=== PATIENT | female | born 1955 | race Caucasian/White ===

== ENCOUNTER → 2020-12-05 16:34 | Outpatient (CLI) | payer OTHER, SELFPAY ==
--- NOTE | ~2020-12-05 | XR_ITS ---
EXAMINATION: XR knee LT min 4V DATE: 12/05/2020 19:00 INDICATION: Left knee pain. TECHNIQUE: 4 views of left knee were obtained. COMPARISON: None. FINDINGS: Bone alignment is normal. No fracture. There is mild tricompartmental osteoarthritis charac terized by tiny marginal osteophytes. No knee joint effusion. IMPRESSION: 1. Mild left knee osteoarthritis. Reviewed, dictated and finalized at location A.
--- NOTE | ~2020-12-05 | XR_ITS ---
EXAMINATION: XR knee RT min 4V DATE: 12/05/2020 19:00 INDICATION: Right knee pain. TECHNIQUE: 4 views of right knee were obtained. COMPARISON: Right knee radiographs 10/22/2007 FINDINGS: Bone alignment is normal. No fracture. There is moderate osteoarthritis of lateral compartm ent and mild osteoarthritis of medial and patellofemoral compartments. There is a small knee joint ef fusion. IMPRESSION: 1. Moderate right knee osteoarthritis. 2. Small right knee joint effusion. Reviewed, dictated and finalized at location A.
== END ==
PROVIDERS: PCP Physician Assistant; Visit Provider Physician Assistant
DX: M17.0 Bilateral primary osteoarthritis of knee (principal); M25.461 Effusion, right knee
CPT/HCPCS: 73564

== ENCOUNTER 2021-05-25 13:24 | Emergency (ER) | payer OTHER, SELFPAY ==
--- NOTE | 2021-05-25 13:36 | ED.FEMALEGU ---
HPI - Female Genitourinary General Chief complaint: Urogenital-Female Stated complaint: uti Time Seen by Provider: 05/25/21 13:37 Source: patient and RN notes reviewed Mode of arrival: ambulatory Limitations: no limitations History of Present Illness HPI Narrative: 66-year-old female presents to the [facility] with complaints of I think I have a UTI. Patient states that when she woke up this morning she had urgency of urination. Also states she has had burning and frequency. States that it feels like she is not emptying her bladder all the way. Last time she had a UTI was over 10 years ago. Denies any chest pain or abdominal pain. No nausea vomiting or diarrhea. No CVA tenderness. No fevers MD elicited complaint: UTI Related Data Home Medications Medication Instructions Recorded Confirmed ezetimibe 10 mg PO DAILY 05/25/21 05/25/21 metoprolol tartrate 25 mg PO BID 05/25/21 05/25/21 Allergies Allergy/AdvReac Type Severity Reaction Status Date / Time No Known Allergies Allergy Mild Verified 05/25/21 13:46 Review of Systems Review of Systems: All systems reviewed & are unremarkable except as noted in HPI and below Constitutional: Constitutional: Reports no additional constitutional complaints Eyes: Eyes: Reports no additional eye complaints Cardiovascular: Cardiovascular: Reports no additional cardiovascular complaints Respiratory: Respiratory: Reports no additional respiratory complaints Gastrointestinal: Gastrointestinal: Reports no additional gastrointestinal complaints, Denies abdominal pain, Denies diarrhea, Denies nausea and Denies vomiting Genitourinary: Genitourinary: Reports as per HPI, Reports nocturia, Reports dysuria, Denies flank pain and Denies vaginal discharge Musculoskeletal: Musculoskeletal: Reports no additional musculoskeletal complaints Integumentary/Breasts: Skin/Breast: Reports system reviewed and no additional complaints, except as docu Neurologic: Reports system reviewed and no additional complaints, except as documented Psychiatric: Psychiatric: Reports no additional psychiatric complaints Allergic/Immunologic: Allergic/Immunologic: Reports no additional allergic/immunologic complaints PMF Past Medical History Medical History (Updated 05/25/21 @ 14:31 by Lis Moreno) Arthritis High cholesterol Mitral valve prolapse no symptoms MARYBETH (obstructive sleep apnea) does not routinely use CPAP Social History Social History (Updated 05/25/21 @ 13:37 by Lis Moreno) Living arrangements: with family Gender identity (if verbalized by the patient): Female Comments At the time of my signature, I reviewed and agree with the nursing past medical, surgical, social, and family history. There is no relevant family history pertinent to the patient complaint. Exam Const: General: healthy appearing, no acute distress and alert Nutritional Appearance: well nourished Orientation/consciousness: patient oriented x3 Limitations: no limitations HENMT: Head: normal to inspection Eyes: Conjunctivae: conjunctivae normal Pupils: Equal, round and reactive pupils present Neck: Neck: normal visual inspection, no lymphadenopathy and no meningeal signs Chest: Chest palpation & inspection: normal inspection of the chest Resp: Effort & Inspection: normal respiratory effort and no use of accessory muscles Auscultation: clear to auscultation bilaterally, no crackles, no rales, no rhonchi and no wheezes Cardio: Rate: bradycardic (On metoprolol) Rhythm: regular rhythm GI: GI Palp: Yes Soft to palpation, No Tenderness to palpation present (GI) and No Guarding due to palpation present (GI) : General: Yes no CVA tenderness Back/Spine/Pelvis: Back: no CVA tenderness Skin: General skin exam: normal color Rashes: no rashes Wounds: no wounds Neuro: General: patient oriented x3, moves all extremities, no meningeal signs and no focal motor deficits Speech: normal speech Gait exa
[2021-05-25 13:38] VITALS: BP 137/77; PULSE 49; RESP 18; TEMP 36.6; O2SAT 100
== END 2021-05-25 13:51 | disposition home or self-care (01) ==
PROVIDERS: Emergency Provider Nurse Practitioner; PCP Physician Assistant
DX: N30.01 Acute cystitis with hematuria (principal)
CPT/HCPCS: 81003; 87086; 87088; 99213; G0463

== ENCOUNTER 2022-05-27 08:56 | Emergency (ER) | payer MEDICARE, SELFPAY ==
--- NOTE | 2022-05-27 08:59 | ED.FEMALEGU ---
HPI - Female Genitourinary General Chief complaint: Urogenital-Female Stated complaint: uti Time Seen by Provider: 05/27/22 08:59 Source: patient and RN notes reviewed History of Present Illness HPI Narrative: Patient is 67-year-old female who presents the urgent care with complaints of a 3-day history of some burning with urination and frequency. Patient states that this morning she woke up with blood in the urine. Patient states she does have a history of UTIs and her last one was approximately 1 year ago. Patient denies of any fever, nausea, vomiting, low back pain. Patient is not taking anything [id number] for her symptoms. No other acute complaints. No acute distress noted. Patient aware the plan of care. Some parts of this dictation were generated by voice recognition software and may contain typographical and/or grammatical inaccuracies. Related Data Home Medications Medication Instructions Recorded Confirmed ezetimibe 10 mg tablet 10 mg PO DAILY 05/25/21 05/25/21 metoprolol tartrate 25 mg tablet 25 mg PO BID 05/25/21 05/25/21 Allergies Allergy/AdvReac Type Severity Reaction Status Date / Time No Known Allergies Allergy Mild Verified 05/25/21 13:46 Review of Systems Review of Systems: CONSTITUTIONAL: Denies fever, chills, or sweats. EYES: Denies visual changes, redness, or discharge. ENT: Denies rhinorrhea, congestion, sore throat, or otalgia. CARDIOVASCULAR: Denies chest pain, palpitations, or edema. RESPIRATORY: Denies cough or dyspnea. GASTROINTESTINAL: Denies abdominal pain, nausea, vomiting, or diarrhea. GENITOURINARY: Reports of dysuria, urinary frequency and hematuria SKIN: Denies rash or itching. MUSCULOSKELETAL: Denies back pain, joint pain, or myalgia. NEUROLOGIC: Denies headache, numbness, or weakness. All other systems reviewed are negative, except as documented in HPI. [facility] Past Medical History Medical History (Updated 05/27/22 @ 09:14 by ANTWAN Yap) Arthritis High cholesterol Mitral valve prolapse no symptoms MARYBETH (obstructive sleep apnea) does not routinely use CPAP Social History Social History (Updated 05/25/21 @ 13:37 by Lis Moreno APRN) Gender identity (if verbalized by the patient): Female Comments At the time of my signature, I reviewed and agree with the nursing past medical, surgical, social, and family history. There is no relevant family history pertinent to the patient complaint. Exam Narrative: GENERAL: This is a well-nourished, well-developed patient, in no apparent distress. HEAD: normocephalic, atraumatic. EYES: PERRL. Sclera clear/white. Vision is grossly intact. EARS: External ears normal NOSE: External nose normal with no obvious nasal discharge, nares without redness, no rhinorrhea. THROAT: Mucous membranes moist NECK: Neck supple CARDIOVASCULAR: Regular rate and rhythm without murmurs, gallops, or rubs. RESPIRATORY: Clear to auscultation. Breath sounds equal bilaterally. No wheezes, rales, or rhonchi. GASTROINTESTINAL: Abdomen soft, non-tender, nondistended. SKIN: warm, intact with no suspicious lesions or rash, good texture and turgor. NEURO: awake, alert, and oriented to person, place and time. There were no obvious focal neurologic abnormalities. EXTREMITIES: No clubbing, cyanosis, or edema. BACK: Negative bilateral CVA tenderness Course Course Level of Care: Express Care Visit Vital Signs Vital signs: Vital Signs Temperature 97.6 F 05/27/22 09:07 Pulse Rate 58 L 05/27/22 09:07 Respiratory Rate 16 05/27/22 09:07 Blood Pressure 171/94 H 05/27/22 09:07 Pulse Oximetry 100 05/27/22 09:07 Temperature 97.6 F 05/27/22 09:07 Pulse Rate 58 L 05/27/22 09:07 Respiratory Rate 16 05/27/22 09:07 Blood Pressure 171/94 H 05/27/22 09:07 Pulse Oximetry 100 05/27/22 09:07 Reviewed-patient is informed that they may have pre-hypertension or hypertension based on a blood pressure reading in the depart
[2022-05-27 09:07] VITALS: BP 171/94; PULSE 58; RESP 16; TEMP 36.4; O2SAT 100
== END 2022-05-27 09:25 | disposition home or self-care (01) ==
PROVIDERS: Emergency Provider Nurse Practitioner Family; PCP Physician Assistant
DX: N39.0 Urinary tract infection, site not specified (principal); M19.90 Unspecified osteoarthritis, unspecified site; E78.5 Hyperlipidemia, unspecified; I34.1 Nonrheumatic mitral (valve) prolapse; G47.33 Obstructive sleep apnea (adult) (pediatric)
CPT/HCPCS: 81003; 87086; 87088; 99213; G0463

== ENCOUNTER 2022-08-30 14:30 | Emergency (ER) | payer MEDICARE, SELFPAY ==
[2022-08-30 14:46] VITALS: BP 182/100; PULSE 73; RESP 20; TEMP 36.5; O2SAT 98
--- NOTE | 2022-08-30 14:57 | ED.GENADULT ---
HPI - General Adult General Chief complaint: Unspecified Stated complaint: Elevated Blood Pressure Time Seen by Provider: 08/30/22 14:59 Source: patient Mode of arrival: ambulatory Limitations: no limitations History of Present Illness HPI narrative: 67-year-old female presents with concern for elevated blood pressure. She reports increased level of stress and anxiety over the last several days, reports she felt slightly strange today so she took her blood pressure was elevated. She reports she takes metoprolol for irregular heart beat, she took an extra dose today. She reports a similar episode of increased high blood pressure in May. She does not follow up with her primary care doctor regarding this. She denies upper respiratory symptoms or taking cold medicine recently. She denies headache, vision changes, changes in speech, weakness in any extremity. MD complaint: High blood pressure Related Data Home Medications Medication Instructions Recorded Confirmed ezetimibe 10 mg tablet 10 mg PO DAILY 05/25/21 08/30/22 metoprolol tartrate 25 mg tablet 25 mg PO BID 05/25/21 08/30/22 Allergies Allergy/AdvReac Type Severity Reaction Status Date / Time No Known Allergies Allergy Mild Verified 05/25/21 13:46 Review of Systems Review of Systems: CONSTITUTIONAL: Denies malaise, chills, sweats, or fever. EYES: Denies visual changes ENT: Denies rhinorrhea, congestion, sinus pain, otalgia or sore throat. CARDIOVASCULAR: Denies chest pain, palpitations, or edema. RESPIRATORY: Denies cough or dyspnea. GASTROINTESTINAL: Denies abdominal pain, nausea, vomiting, diarrhea, SKIN: Denies rash or itching. MUSCULOSKELETAL: Denies back pain, joint pain, or myalgia. NEUROLOGIC: Denies numbness, weakness, or headache. PSYCHIATRIC: Reports anxiety All systems reviewed & are unremarkable except as noted in HPI and below PMFSH Past Medical History Medical History (Updated 08/30/22 @ 15:12 by Lis Galan NP) Arthritis High cholesterol Mitral valve prolapse no symptoms MARYBETH (obstructive sleep apnea) does not routinely use CPAP Social History Social History (Updated 05/25/21 @ 13:37 by Lis Moreno APRN) Gender identity (if verbalized by the patient): Female Comments At time of signature, agree with nursing past medical, surgical, social and family history. There is no relevant family history pertinent to the presenting complaint Exam Narrative: GENERAL: Well-appearing, well-nourished, and in no acute distress. HEAD: Normocephalic, atraumatic. EYES: PERRLA, sclera clear, and EOMI. No nystagmus. ENT: Nares clear, turbinates pink, no rhinorrhea or epistaxis. Mucous membranes moist. TM pearly mckenzie with sharp light reflex bilaterally; no tragal tenderness. Oropharynx without erythema or lesions. Tonsils not enlarged and without exudate. NECK: Supple. No lymphadenopathy. No jugular venous distension, thyromegaly, or carotid bruits. Carotids were easily palpable bilaterally. CHEST: No respiratory distress. Clear to auscultation. No bony deformities, no asymmetry. Speaks in full sentences. HEART: Regular rate and rhythm. No murmur heard. Normal peripheral pulses. EXTREMITIES: Normal range of motion. No edema. Normal strength and sensation. SKIN: Warm, dry, no visible rash. NEURO: Alert and oriented x3. No focal deficits. Cranial nerves II through XII grossly intact PSYCH: Normal mood and affect Course Course Emergency Course: Discussed with limited diagnostic capability at [facility] with the patient, offered transfer to emergency room for further evaluation of her high blood pressure. Patient her considered this, then decided to follow-up with their primary care doctor, they understand reasons to go to emergency room if her symptoms change or worsen. Anticipatory guidance given. Patient agrees to follow-up as directed and is aware of reasons to seek care at the emergency department. Portions of this record may reyna
== END 2022-08-30 15:21 | disposition home or self-care (01) ==
PROVIDERS: Emergency Provider Nurse Practitioner; PCP Physician Assistant
DX: F41.9 Anxiety disorder, unspecified (principal); R03.0 Elevated blood-pressure reading, without diagnosis of hypertension
CPT/HCPCS: 99213; G0463

== ENCOUNTER 2022-09-29 23:31 | Observation (INO) | payer MEDICARE, SELFPAY ==
--- NOTE | ~2022-09-29 | XR_ITS ---
Clinical Indication: Shortness of breath PA and lateral views of the chest: Comparison: None Findings: The lungs are clear, without evidence of focal consolidation or pleural effusion. Cardiome diastinal silhouette is within normal limits. Bones and soft tissues are unremarkable. Impression: Normal chest. Reviewed, dictated and finalized at [facility]. E WASHER Impression: Normal chest.
--- NOTE | 2022-09-29 23:32 | ECG_ITS ---
Measurements Intervals Clint Rate: 136 P: FL: 0 QRS: 40 QRSD: 91 T: 238 QT: 270 QTc: 407 Interpretive Statements ATRIAL FIBRILLATION WITH RAPID VENTRICULAR RESPONSE ST-T WAVE ABNORMALITY IN INFERIOR LEADS- CONSIDER ISCHEMIA BASELINE WANDER- I, II, III, AVR, AVL, AVF, V3-V6 ABNORMAL ECG NO PREVIOUS ECG AVAILABLE FOR COMPARISON Electronically Signed On 09-30-2022 7:48:49 ANCILLARY SERVICES MANAGER by Zachariah Motley D.O.
[2022-09-29 23:38] VITALS: BP 161/99; PULSE 125; RESP 18; TEMP 36.7; O2SAT 99
[2022-09-29 23:51] VITALS: PULSE 129; RESP 26; O2SAT 99
[2022-09-29 23:54] VITALS: PULSE 134
[2022-09-30] VITALS (51 sets, daily range): BP systolic 100–157; BP diastolic 66–133; PULSE 50–151; RESP 18–29; TEMP 36.4–36.7; O2SAT 93–99; BMI 33.0
[2022-09-30] MEDS: ASPIRIN 81 MG CHEWABLE TABLET 324 MG PO (00:07)
[2022-09-30] MEDS: dilTIAZem HCl INJ 25 MG/5 ML VIAL 20 MG IV PUSH (00:08)
[2022-09-30] MEDS: dilTIAZem 100 MG/100 ML 100 MG/100 ML BAG IV CONT (00:10)
--- NOTE | 2022-09-30 00:28 | ED.GENADULT ---
HPI - General Adult General Chief complaint: Arrhythmia/Palpitations Stated complaint: fast HR, SOB Time Seen by Provider: 09/29/22 23:45 History of Present Illness HPI narrative: Patient is 67-year-old female who presents to the emergency department with chief complaint of palpitations. Patient reports that this evening she had sudden onset where her heart started beating extremely fast the patient states she felt little short of breath particularly with exertion after the palpitations started. Patient reports that she has had some irregular beats before but no prior history of atrial fibrillation The patient denies chest pain denies pain or swelling in her calves or legs Related Data Home Medications Medication Instructions Recorded Confirmed ezetimibe 10 mg tablet 10 mg PO DAILY 05/25/21 08/30/22 metoprolol tartrate 25 mg tablet 25 mg PO BID 05/25/21 08/30/22 Allergies Allergy/AdvReac Type Severity Reaction Status Date / Time No Known Allergies Allergy Mild Verified 09/04/22 15:22 Review of Systems Review of Systems: A 10 system review of systems was completed on the patient and is negative except for what is stated in the HPI. Nursing and ancillary documentation was reviewed. [facility] Past Medical History Medical History Arthritis High cholesterol Mitral valve prolapse no symptoms MARYBETH (obstructive sleep apnea) does not routinely use CPAP Family History Family History Mother Hypertension Family history of diabetes mellitus in first degree relative Sibling Hypertension Family history of diabetes mellitus in first degree relative Father Family history of malignant neoplasm Social History Social History Alcohol intake: current Living arrangements: with family Gender identity (if verbalized by the patient): Female Exam Narrative: GENERAL: Well-appearing, well-nourished, and in no acute distress. HEAD: Normocephalic, atraumatic. EYES: PERRLA and EOMI. ENT: Nares clear, no rhinorrhea or epistaxis. Mucous membranes moist. NECK: Supple. CHEST: Clear to auscultation. No respiratory distress. HEART: Irregularly irregular tachycardic rate and rhythm. No murmur heard. Normal peripheral pulses. ABDOMEN: Soft, nontender, nondistended, normal active bowel sounds. EXTREMITIES: Normal range of motion. No edema. SKIN: Warm, dry, no rash. NEURO: No focal deficits. Alert and oriented x3. PSYCH: Normal mood and affect. Course Vital Signs Vital signs: Vital Signs Temperature 36.7 C 09/29/22 23:38 Pulse Rate 125 H 09/29/22 23:38 Respiratory Rate 18 09/29/22 23:38 Blood Pressure 161/99 H 09/29/22 23:38 Pulse Oximetry 99 09/29/22 23:38 Oxygen Delivery Room Air 09/29/22 23:38 Temperature 36.7 C 09/29/22 23:38 Pulse Rate 114 H 09/30/22 01:01 Respiratory Rate 25 H 09/30/22 01:01 Blood Pressure 118/76 09/30/22 01:01 Pulse Oximetry 96 09/30/22 01:01 Oxygen Delivery Room Air 09/29/22 23:38 Medical Decision Making MDM Narrative Medical decision making narrative: EKG is atrial fibrillation with rapid ventricular response with a rate of 136. There is no ST elevation or ST depression Chest x-ray interpreted by me shows no evidence of acute abnormality normal mediastinum no pneumothorax Vital Signs Vital Signs: Vital Signs Temperature 36.7 C 09/29/22 23:38 Pulse Rate 125 H 09/29/22 23:38 Respiratory Rate 18 09/29/22 23:38 Blood Pressure 161/99 H 09/29/22 23:38 Pulse Oximetry 99 09/29/22 23:38 Oxygen Delivery Room Air 09/29/22 23:38 Temperature 36.7 C 09/29/22 23:38 Pulse Rate 114 H 09/30/22 01:01 Respiratory Rate 25 H 09/30/22 01:01 Blood Pressure 118/76 09/30/22 01:01 Pulse Oximetry 96 09/30/22 01:01 Oxygen Delivery Room Air 0
[2022-09-30 00:29] LABS: Basophils Percent Auto 0.4 % (0.2-1.2); Eosinophils Absolute Auto 0.1 K/mm3 (0-0.3); Eosinophils Percent Auto 1.3 % (0-4.4); Hematocrit 45.2 % (37.0-47.0); Hemoglobin 14.7 g/dL (12.0-15.0); Immature Granulocyte Absolute 0.03 K/mm3 (0.00-0.031); Immature Granulocyte Percent A 0.4 % (0-0.5); Lymphocytes Percent Auto 38.9 % (18.3-44.2); Mean Corpuscular HGB Conc 32.5 g/dl (32-36); Mean Corpuscular Hemoglobin 30.3 pg (26-34); Mean Corpuscular Volume 93.2 fl (80-100); Monocytes Absolute Auto 0.5 K/mm3 (0.1-0.6); Neutrophils Absolute Auto 4.4 K/mm3 (1.3-6.7); Platelet Count Result 207 k/mm3 (150-375); Red Blood Count 4.85 M/mm3 (4.2-5.4); Red Cell Distribution Width 12.9 % (11.5-14.5); White Blood Count 8.2 K/mm3 (4.5-10.0)
[2022-09-30 00:35] LABS: Prothrombin Time 12.3 Seconds (11.1-14.7)
[2022-09-30 00:36] LABS: Partial Thromboplastin Time 25.6 SECONDS (22.3-36.8)
[2022-09-30 00:41] LABS: Alanine Aminotransferase 48 U/L (6-35); Albumin Level 4.6 g/dL (3.5-5.1); Alkaline Phosphatase 90 U/L (38-126); Anion Gap 8 mmol/L (8-16); Aspartate Amino Transferase 44 U/L (14-36); Bilirubin,Total 0.9 mg/dL (0.2-1.3); Blood Urea Nitrogen 14 mg/dL (7-17); Calcium 9.3 mg/dL (8.4-10.2); Carbon Dioxide 27 mmol/L (22-30); Chloride 103 mmol/L (98-107); Estimated CRCL calculation 81 ml/min; Estimated Glomerular Filt Rate > 60; Glucose 131 mg/dL (65-110); Lipase 325 U/L (23-300); Potassium 3.5 mmol/L (3.4-5.0); Sodium 138 mmol/L (137-145)
[2022-09-30 00:52] LABS: Troponin I < 0.012 ng/mL (0.000-0.034)
[2022-09-30 01:15] LABS: Influenza A QL RT-PCR Negative (Negative); Influenza B QL RT-PCR Negative (Negative); SARS-CoV-2 RNA PCR Negative
[2022-09-30 01:24] LABS: Magnesium 2.1 mg/dL (1.6-2.3)
[2022-09-30] MEDS: ENOXAPARIN 100 MG/ML SYRINGE 90 MG SUB-Q (03:24)
--- NOTE | 2022-09-30 05:30 | ADMGEN ---
This patient, Fortino Solano, was admitted to IMU Room 214-01. Patient/family oriented to hospital policies and general routines including ID bracelet, bed and alarms, visiting hours, pain management, procedures, bathroom and other care routines, personal items, smoking policy, room service/diet, and visiting hours. Information on how to activate the Rapid Response Team has been discussed. Patient/Family are encouraged to report perceived risks to care and to ask questions if they do not understand what they are told or what they should do.
[2022-09-30] MEDS: dilTIAZem 100 MG/100 ML 100 MG/100 ML BAG 15 MG IV CONT (05:49)
--- NOTE | 2022-09-30 06:00 | ECHO_ITS ---
Patient Info Name: Fortino Solano Age: 67 years : 1955 Gender: Female Ht: 68 in Wt: 217 lbs BSA: 2.21 m2 HR: 52 bpm BP: 118 / 67 mmHg Heart Rhythm: Sinus Rhythm, Bradycardia Exam Date: 09/30/2022 2:49 PM Exam Location: [facility] Pulmonary Patient Status: Inpatient Admit Date: 09/30/2022 Staff Ordering Physician: Michael Villa MD Tax Manager Public: Keyon Siddiqi, NEHAL, RT Attending Provider: Susanna Guajardo DO Referring Physician: Daisy VACA; Exam Type: CA echo dop color flow w con Study Info Indications I48.0 - Paroxysmal atrial fibrillation Complete two-dimensional, color flow and Doppler transthoracic echocardiogram is performed with contrast to opacify the left ventricle and to improve the deliniation of the left ventricle endocardial borders. Summary 1. Left ventricular chamber dimension is normal. 2. Left ventricular systolic function is normal, estimated at 65-70%. 3. There is mildly increased left ventricular wall thickness. 4. The left ventricular diastolic function is grade II diastolic dysfunction. 5. Right ventricular systolic function is normal. 6. Left atrial chamber dimension is mildly enlarged. 7. Right atrial chamber dimension is mildly enlarged. 8. There is mild tricuspid valve regurgitation. Left Ventricle Left ventricular chamber dimension is normal. Left ventricular systolic function is normal, estimated at 65-70%. There is mildly increased left ventricular wall thickness. The left ventricular diastolic function is grade II diastolic dysfunction. Right Ventricle Right ventricular chamber dimension is normal. Right ventricular systolic function is normal. Left Atria Left atrial chamber dimension is mildly enlarged. Right Atria Right atrial chamber dimension is mildly enlarged. Atrial Septum Intact interatrial septum visualized by color flow imaging. Aortic Valve The aortic valve is trileaflet. There is no aortic valve stenosis. There is no aortic valve regurgitation. Pulmonic Valve The pulmonic valve is not well visualized. Mitral Valve The mitral valve has normal leaflets. There is no mitral valve stenosis. There is trace mitral valve regurgitation. Tricuspid Valve There is mild tricuspid valve regurgitation. Pericardium/Pleural There is small pericardial effusion. Inferior Vena Cava Normal inferior vena cava with >50% collapse upon inspiration consistent with normal right atrial pressure, 3 mmHg. Aorta The aortic root size at the sinus of Valsalva is normal. Left Ventricular Outflow Tract Name Value Normal LVOT 2D LVOT Diameter 1.89 cm LVOT Doppler LVOT Peak Gradient 8 mmHg LVOT Mean Gradient 3 mmHg LVOT VTI 30.38 cm LVOT VTI/AV VTI Ratio 0.73 LVOT Stroke Volume 85.29 ml LVOT CO 4.74 l/min LVOT CI 2.15 L/min/m2 Mitral Valve Name
--- NOTE | 2022-09-30 06:29 | PM.IMHP ---
H&P: HPI History of Present Illness Date/Time: 09/30/22 06:00 Chief Complaint: ?Heart beating out of her chest? Narrative: 67-year-old female with past medical history of pre diabetes, essential hypertension, premature ventricular contractions, obstructive sleep apnea and obesity who presented to the ER from home via private vehicle due to sensation of palpitations. Patient stated that she was making a snack at home when she suddenly had onset of her heart racing. Her heart was going up to 140 beats per minute. Her rhythm was irregular. She denied any nausea, diaphoresis, or chest pain. She has noted stat her hands are little bit more swollen today but otherwise has been a lower extremity swelling. She denies prior dyspnea on exertion. She does see Dr. Schaeffer for PVCs and takes metoprolol. She reports that usually at rest her heart rate is in the 50s. When she arrived to the ER today her heart rate was 135. EKG per confirmed atrial fibrillation. Patient received 1 dose of IV Cardizem in the ER and was started on Cardizem drip. The patient is blood pressures were intermittently soft but Cardizem was titrated up to 15. At the time of my evaluation patient's heart rates were still between the 120s and 130s for most part. The patient is still symptomatic. She received 1 dose of therapeutic Lovenox in the ER. Cardiac enzymes were negative. She reports dry mouth today. She denies significant caffeine use or use of lptl-bbn-eaxdxra medications besides Aleve aspirin and Tylenol. She reports that she has been getting plenty of sleep and has been compliant with her auto titrating CPAP therapy. The patient reports that her blood pressures have been running a little bit high recently. She states that she is on metoprolol but it is not for blood pressure to his for PVCs. She states that she takes the metoprolol 12.5 mg t.i.d.. Review of Systems Review of Systems: 12 systems were reviewed with pertinent positives and negatives per HPI. Except as documented in the HPI, all other systems were reviewed and are negative. She has intermittent urge incontinence. She is compliant with her CPAP therapy. She reports that she has frequent migraines in takes naproxen, aspirin and Tylenol in rotating doses. No hematochezia, melena or hematuria. [facility] Past Medical History Medical History (Updated 09/30/22 @ 06:43 by Susanna Guajardo DO) Arthritis Bulging discs L4 L5-S1 Cataracts, bilateral Maturing Endometriosis High cholesterol Mitral valve prolapse no symptoms Obesity (BMI 30.0-34.9) MARYBETH (obstructive sleep apnea) Auto titrating CPAP Pre-diabetes PVCs (premature ventricular contractions) Surgical History Surgical History (Updated 09/30/22 @ 06:51 by Susanna Guajardo DO) History of colonoscopy with polypectomy (09/2019) History of endometrial ablation History of exploratory laparotomy History of right oophorectomy History of tonsillectomy Status post bilateral foot surgery She had pens placed in the 4th and 5th toes of bilateral feet to straight in her toes as a teenager Family History Family History (Updated 09/30/22 @ 06:45 by Susanna Guajardo DO) Mother Hypertension Diabetes mellitus Lung cancer Sibling Hypertension Diabetes mellitus Father Leukemia Social History Social History (Updated 09/30/22 @ 06:47 by Susanna Guajardo DO) Social History: The patient lives with her significant other and her son. 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 She rarely drinks alcohol and only in small amounts. She she used to occasionally use marijuana. Code status: Full code Surrogate decision maker: Estela Delatorre (significant other) and Cordell Garcia (son) Smoking packs per day: 1 Smoking cigarettes per day: 20.0 Years smoked: 25 Smoking pack-years: 25.00 Smoking status: Former smoker Alcohol intake: never Substance use: never Lack of Transportation: No Lack of Food: Never True
[2022-09-30] MEDS: METOPROLOL TARTRATE INJ 5 MG/5 ML VIAL IV PUSH (06:42)
[2022-09-30 06:55] LABS: Troponin I < 0.012 ng/mL (0.000-0.034)
[2022-09-30] MEDS: SENNOSIDES 8.6 MG TABLET PO (08:48)
[2022-09-30] MEDS: CHOLECALCIFEROL 1,000 UNITS TABLET 2000 UNITS PO (08:48)
[2022-09-30] MEDS: EZETIMIBE 10 MG TABLET PO (08:48)
[2022-09-30] MEDS: ASPIRIN 81 MG CHEWABLE TABLET PO (08:49)
[2022-09-30] MEDS: METOPROLOL TARTRATE 12.5 MG TABLET PO ×2 (08:49→13:24)
[2022-09-30] MEDS: THERAPEUTIC MULTIVITAMINS/MINERALS TAB (*BKC) 1 TABLET PO (08:49)
[2022-09-30] MEDS: OMEGA 3 POLYUNSAT FATTY ACIDS 1 GM CAP PO ×2 (08:49→13:24)
--- NOTE | 2022-09-30 10:39 | PM.CNCAR ---
Assessment and Plan Assessment and plan (1) Atrial fibrillation with rapid ventricular response: Code(s): I48.91 - Unspecified atrial fibrillation Status: Acute Plan Patient already back in sinus rhythm. HR in the high 40s - Dilt drip turned off. Will continue with low-dose Metoprolol. [id number] of 3 for age, gender, and HTN. Will switch therapeutic Lovenox to Eliquis. TSH normal. Will check echocardiogram. Patient could possibly be discharged later this afternoon. Will have patient follow-up with us in clinic. History of Present Illness History of Present Illness Consult date/time: 09/30/22 10:39 Requesting physician: Susanna Guajardo DO Consult reason: atrial fibrillation Reason For Visit: New onset A. w/fib rapid ventricular response Narrative: We are consulted for atrial fibrillation. This is a 67-year-old female with a history of pre-diabetes, hypertension, PVCs, MARYBETH compliant with CPAP, obesity who presented to the ER with palpitations. Patient noticed her heart rate going up to the 140s at home. Does take Metoprolol 12.5mg TID at home for PVCs. EKG in the ER confirmed atrial fibrillation with RVR. She was started on Dilt drip. Started on therapeutic lovenox. Upon my evaluation, patient already converted back to sinus rhythm. Sleeping comfortably. No cardiac symptoms at this time. Dilt drip turned off by the RN due to HR in the high 40s. Review of Systems Review of Systems: 12-point ROS obtained. Negative, unless stated in HPI. [facility] Past Medical History Medical History Arthritis Bulging discs L4 L5-S1 Cataracts, bilateral Maturing Endometriosis High cholesterol Mitral valve prolapse no symptoms Obesity (BMI 30.0-34.9) MARYBETH (obstructive sleep apnea) Auto titrating CPAP Pre-diabetes PVCs (premature ventricular contractions) Surgical History Surgical History History of colonoscopy with polypectomy (09/2019) History of endometrial ablation History of exploratory laparotomy History of right oophorectomy History of tonsillectomy Status post bilateral foot surgery She had pens placed in the 4th and 5th toes of bilateral feet to straight in her toes as a teenager Family History Family History Mother Hypertension Diabetes mellitus Lung cancer Sibling Hypertension Diabetes mellitus Father Leukemia Social History Social History Social History: The patient lives with her significant other and her son. 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 She rarely drinks alcohol and only in small amounts. She she used to occasionally use marijuana. Code status: Full code Surrogate decision maker: Estela Delatorre (significant other) and Cordell Garcia (son) Smoking packs per day: 1 Smoking cigarettes per day: 20.0 Years smoked: 25 Smoking pack-years: 25.00 Smoking status: Former smoker Alcohol intake: never Substance use: never Lack of Transportation: No Lack of Food: Never True Current Housing: I Have Housing Concerned About Future Housing: No Difficulty Paying Gas/Electric Bills: No Difficulty Paying for Meds: No Currently Unemployed: No Education: Bachelor's Degree Difficulty w/ Childcare or Family Care: No Living arrangements: with family Gender identity (if verbalized by the patient): Female Spiritual care concerns: No Meds Home Medications and Allergies Home Medications Medication Instructions Recorded Confirmed Type ezetimibe 10 mg tablet 10 mg PO DAILY 05/25/21 09/30/22 History metoprolol tartrate 25 mg tablet 12.5 mg PO TID 05/25/21 09/30/22 History acetaminophen 325 mg tablet 650 mg PO PRN PRN Pain 09/30/22 09/30/22 History aspirin 325 mg tablet 325 mg PO PRN 09/30/22 09/30/22 History cetirizine 10 mg tab
[2022-09-30 11:00] LABS: Hematocrit 44.6 % (37.0-47.0); Hemoglobin 14.6 g/dL (12.0-15.0); Mean Corpuscular HGB Conc 32.7 g/dl (32-36); Mean Corpuscular Hemoglobin 30.8 pg (26-34); Mean Corpuscular Volume 94.1 fl (80-100); Mean Platelet Volume 11.5 fl (7.4-10.4); Platelet Count Result 219 k/mm3 (150-375); Red Blood Count 4.74 M/mm3 (4.2-5.4); Red Cell Distribution Width 13.1 % (11.5-14.5); White Blood Count 8.4 K/mm3 (4.5-10.0)
[2022-09-30 11:11] LABS: Anion Gap 6 mmol/L (8-16); Blood Urea Nitrogen 10 mg/dL (7-17); Calcium 9.3 mg/dL (8.4-10.2); Carbon Dioxide 30 mmol/L (22-30); Chloride 104 mmol/L (98-107); Estimated CRCL calculation 115 ml/min; Estimated Glomerular Filt Rate > 60; Glucose 112 mg/dL (65-110); Magnesium 2.2 mg/dL (1.6-2.3); Potassium 3.7 mmol/L (3.4-5.0); Sodium 140 mmol/L (137-145)
[2022-09-30] MEDS: PERFLUTREN LIPID MICROSPHERES 1.5 ML VIAL DILUTED TO 10 ML TOTAL VOLUME IV PUSH (15:07)
--- NOTE | 2022-09-30 15:07 | IVDEFINITY ---
Prior to administration of IV Definity the patient was educated on the risks and benefits of the imaging enhancing agent including potential adverse side effects. The patient verbalized understanding. Allergies were verified. No exclusion criteria were identified and at least one of the following inclusion criteria were met: 1) physician request, 2) patient technically difficult to image (per the [place] [employer] guidelines of two or more segments not discernable within the apical view), or 3) questionable left ventricular function. ?
--- NOTE | 2022-09-30 16:16 | PM.DS ---
DS: Admitting Diagnosis Discharge Date 09/30/2022 Admitting Diagnosis ?Heart beating out of her chest? DS: Discharge Diagnosis Discharge Diagnosis (1) Atrial fibrillation with rapid ventricular response: Code(s): I48.91 - Unspecified atrial fibrillation Status: Acute Assessment and Plan: New onset AFib RVR. Patient is on a Cardizem drip at 15 and rate is still bouncing between 110 and 130. Patient's blood pressures are ranging between normal to slightly high. Will give the patient 1 time dose of IV metoprolol. Since the patient already follows with cardiology a will defer management of the patient's metoprolol to Dr. Schaeffer. The patient's chads Vasc score is 3 resulting in 3% risk of stroke. Will defer twice initiation of therapy to Cardiology Service. Patient received 1 dose of therapeutic Lovenox in the ER. (2) MARYBETH (obstructive sleep apnea): Code(s): G47.33 - Obstructive sleep apnea (adult) (pediatric) Status: Acute Assessment and Plan: CPAP auto titrating has been ordered. (3) Elevated LFTs: Code(s): R79.89 - Other specified abnormal findings of blood chemistry Status: Acute Assessment and Plan: Mild elevation of AST and ALT likely due to fatty infiltration. The patient does have history of hyperlipidemia. May consider right upper quadrant ultrasound as outpatient. No need to pursue during this hospitalization. (4) Migraines: Code(s): G43.909 - Migraine, unspecified, not intractable, without status migrainosus Status: Acute Assessment and Plan: If the patient starts on long-term anticoagulation she will need to stop using Aleve and ibuprofen for migraine relief. Plan Patient has been admitted as observation status. DS: Summary Hospital Course Reason for hospitalization: ?Heart beating out of her chest? Narrative: 67-year-old female with past medical history of pre diabetes, essential hypertension, premature ventricular contractions, obstructive sleep apnea and obesity who presented to the ER from home via private vehicle due to sensation of palpitations.? Patient stated that she was making a snack at home when she suddenly had onset of her heart racing.? Her heart was going up to 140 beats per minute.? Her rhythm was irregular.? She denied any nausea, diaphoresis, or chest pain.? She has noted stat her hands are little bit more swollen today but otherwise has been a lower extremity swelling.? She denies prior dyspnea on exertion.? She does see Dr. Schaeffer for PVCs and takes metoprolol.? She reports that usually at rest her heart rate is in the 50s.? When she arrived to the ER today her heart rate was 135.? EKG per confirmed atrial fibrillation.? Patient received 1 dose of IV Cardizem in the ER and was started on Cardizem drip.? The patient is blood pressures were intermittently soft but Cardizem was titrated up to 15.? At the time of my evaluation patient's heart rates were still between the 120s and 130s for most part.? The patient is still symptomatic.? She received 1 dose of therapeutic Lovenox in the ER.? Cardiac enzymes were negative.? She reports dry mouth today.? She denies significant caffeine use or use of xyma-kte-ladxkbz medications besides Aleve aspirin and Tylenol.? She reports that she has been getting plenty of sleep and has been compliant with her auto titrating CPAP therapy.? The patient reports that her blood pressures have been running a little bit high recently.? She states that she is on metoprolol but it is not for blood pressure to his for PVCs.? She states that she takes the metoprolol 12.5 mg t.i.d.. Hospital Course: 67-year-old female presented with complaint of palpitation was found to have atrial fibrillation with RVR patient was started on diltiazem drip heart rate is trending down and 40 and patient now in sinus rhythm seen by cardiology place the patient low-dose metoprolol and patient's [id number] of 3
== END 2022-09-30 17:05 | disposition home or self-care (01) ==
LOC: ANHED 09-30 02:05 → ANHIMU 09-30 05:35
PROVIDERS: Admitting Provider Internal Medicine; Emergency Provider Emergency Medicine; PCP Physician Assistant; Visit Provider Family Medicine
DX: I48.91 Unspecified atrial fibrillation (principal); G47.33 Obstructive sleep apnea (adult) (pediatric); Z99.89 Dependence on other enabling machines and devices; R79.89 Other specified abnormal findings of blood chemistry; G43.909 Migraine, unspecified, not intractable, without status migrainosus; I49.3 Ventricular premature depolarization; R00.2 Palpitations; I08.1 Rheumatic disorders of both mitral and tricuspid valves; I11.9 Hypertensive heart disease without heart failure; Z20.822 Contact with and (suspected) exposure to COVID-19; E66.9 Obesity, unspecified; R73.03 Prediabetes; Z68.33 Body mass index [BMI] 33.0-33.9, adult; M19.90 Unspecified osteoarthritis, unspecified site; E78.00 Pure hypercholesterolemia, unspecified; M79.89 Other specified soft tissue disorders; R94.31 Abnormal electrocardiogram [ECG] [EKG]; F10.90 Alcohol use, unspecified, uncomplicated; Z87.891 Personal history of nicotine dependence; Z79.1 Long term (current) use of non-steroidal anti-inflammatories (NSAID); Z79.82 Long term (current) use of aspirin; Z79.899 Other long term (current) drug therapy; Z82.49 Family history of ischemic heart disease and other diseases of the circulatory system; Z83.3 Family history of diabetes mellitus
CPT/HCPCS: 36415; 71046; 80048; 80053; 83690; 83735; 84443; 84484; 85025; 85027; 85610; 85730; 87636; 93005; 96365; 96366; 96372; 96375; 99285; A9270; C8929; G0378; J1650; Q9957

== ENCOUNTER 2023-02-08 23:50 | Emergency (ER) | payer MEDICARE, SELFPAY ==
[2023-02-08 23:52] VITALS: BP 147/96; PULSE 58; RESP 16; TEMP 36.6; O2SAT 100
--- NOTE | 2023-02-09 00:51 | ED.EYEPROB ---
HPI - Eye Problem General Chief complaint: Eye Problems Stated complaint: right pain Time Seen by Provider: 02/09/23 00:35 Source: patient Mode of arrival: ambulatory Limitations: no limitations History of Present Illness HPI Narrative: This is a 67-year-old female who presents to the ED with chief complaint of right eye irritation x1 day and sinus congestion x1 week. Patient reports that she has a stye in the right eye and it is caused irritation and burning pain. Denies any vision changes. Denies pain with EOMs. She also reports some sinus congestion and pressure along with rhinorrhea. Denies fevers, chills, facial swelling. Related Data Home Medications Medication Instructions Recorded Confirmed ezetimibe 10 mg tablet 10 mg PO DAILY 05/25/21 09/30/22 metoprolol tartrate 25 mg tablet 12.5 mg PO TID 05/25/21 09/30/22 acetaminophen 325 mg tablet 650 mg PO PRN PRN Pain 09/30/22 09/30/22 cetirizine 10 mg tablet (Zyrtec) 10 mg PO DAILY 09/30/22 09/30/22 cholecalciferol (vitamin D3) 50 50 mcg PO DAILY 09/30/22 09/30/22 mcg (2,000 unit) tablet multivitamin with minerals 1 tablet PO DAILY 09/30/22 09/30/22 omega 9-rhw-ghd-fish oil 1,200 mg 1 cap PO TID 09/30/22 09/30/22 (144 mg-216 mg) capsule (Fish Oil) sennosides 8.6 mg tablet (senna) 17.2 mg PO DAILY 09/30/22 09/30/22 Allergies Allergy/AdvReac Type Severity Reaction Status Date / Time No Known Allergies Allergy Mild Verified 02/08/23 23:51 Review of Systems Review of Systems: CONSTITUTIONAL: Denies fever, chills, or sweats. EYES: See HPI ENT: See HPI CARDIOVASCULAR: Denies chest pain, palpitations, or edema. RESPIRATORY: Denies cough or dyspnea. GASTROINTESTINAL: Denies abdominal pain, nausea, vomiting, or diarrhea. GENITOURINARY: Denies dysuria or hematuria. SKIN: Denies rash or itching. MUSCULOSKELETAL: Denies back pain, joint pain, or myalgia. NEUROLOGIC: Denies headache, numbness, dizziness, or weakness. PSYCHIATRIC: Denies anxiety or depression. PMFSH Past Medical History Medical History Arthritis Bulging discs L4 L5-S1 Cataracts, bilateral Maturing Endometriosis High cholesterol Mitral valve prolapse no symptoms Obesity (BMI 30.0-34.9) MARYBETH (obstructive sleep apnea) Auto titrating CPAP Pre-diabetes PVCs (premature ventricular contractions) Surgical History Surgical History History of colonoscopy with polypectomy (09/2019) History of endometrial ablation History of exploratory laparotomy History of right oophorectomy History of tonsillectomy Status post bilateral foot surgery She had pens placed in the 4th and 5th toes of bilateral feet to straight in her toes as a teenager Family History Family History Mother Hypertension Diabetes mellitus Lung cancer Sibling Hypertension Diabetes mellitus Father Leukemia Social History Social History Social History: The patient lives with her significant other and her son. 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 She rarely drinks alcohol and only in small amounts. She she used to occasionally use marijuana. Code status: Full code Surrogate decision maker: Estela Delatorre (significant other) and Cordell Garcia (son) Smoking packs per day: 1 Smoking cigarettes per day: 20.0 Years smoked: 25 Smoking pack-years: 25.00 Smoking status: Former smoker Alcohol intake: never Substance use: never Lack of Transportation: No Lack of Food: Never True Current Housing: I Have Housing Concerned About Future Housing: No Difficulty Paying Gas/Electric Bills: No Difficulty Paying for Meds: No Currently Unemployed: No Education: Bachelor's Degree Difficulty w/ Childcare or Family Care: No Living arrangements: with family Gender identity (if verbali
[2023-02-09] MEDS: ARTIFICIAL TEARS OPHTH SOLN 15 ML BOTTLE 1 DROP EACH EYE (01:34)
[2023-02-09] MEDS: NEOMYCIN/POLYMYXIN/BACITRACIN OPHTH OINTMENT 3.5 GM TUBE 1 APPLIC RIGHT EYE (01:34)
== END 2023-02-09 01:39 | disposition home or self-care (01) ==
PROVIDERS: Emergency Provider Physician Assistant; PCP Physician Assistant
DX: H10.9 Unspecified conjunctivitis (principal); J32.9 Chronic sinusitis, unspecified; E78.00 Pure hypercholesterolemia, unspecified; G47.33 Obstructive sleep apnea (adult) (pediatric); I49.3 Ventricular premature depolarization; Z87.891 Personal history of nicotine dependence; Z79.01 Long term (current) use of anticoagulants; Z79.82 Long term (current) use of aspirin
CPT/HCPCS: 99283; A9270

== ENCOUNTER 2023-05-12 13:12 | Emergency (ER) | payer MEDICARE, SELFPAY ==
--- NOTE | ~2023-05-12 | XR_ITS ---
EXAMINATION: XR chest 2V DATE: 05/12/2023 13:54 INDICATION: Productive cough TECHNIQUE: PA and lateral views of the chest are obtained. COMPARISON: 09/30/2022 FINDINGS: The lungs are free of acute opacities. No pleural effusion or pneumothorax. The cardiomedia stinal silhouette is normal. There is mild thoracic spondylosis. A stable sclerotic lesion of the pro ximal left humerus likely reflects an enchondroma. IMPRESSION: 1. No acute cardiopulmonary abnormality. Reviewed, dictated and finalized at location L.
[2023-05-12 13:28] VITALS: BP 145/78; PULSE 66; RESP 18; TEMP 36.5; O2SAT 100
--- NOTE | 2023-05-12 13:30 | ED.URI ---
HPI - URI/Sore Throat General Chief Complaint: Upper Respiratory Infection Stated Complaint: Sore Throat,Congestion Time Seen by Provider: 05/12/23 13:31 Source: patient Mode of arrival: ambulatory Limitations: no limitations History of Present Illness HPI Narrative: Stephon is a 68-year-old female patient presenting to the clinic today with complaints of sore throat and congestion x5 days. She reports she has a productive cough with green phlegm and mild shortness of breath. Has not taken anything for her symptoms. She has COVID tested herself and was negative. MD elicited complaint: sore throat and nasal congestion Related Data Home Medications Medication Instructions Recorded Confirmed ezetimibe 10 mg tablet 10 mg PO DAILY 05/25/21 05/12/23 metoprolol tartrate 25 mg tablet 12.5 mg PO TID 05/25/21 05/12/23 cetirizine 10 mg tablet (Zyrtec) 10 mg PO DAILY 09/30/22 05/12/23 cholecalciferol (vitamin D3) 50 50 mcg PO DAILY 09/30/22 05/12/23 mcg (2,000 unit) tablet multivitamin with minerals 1 tablet PO DAILY 09/30/22 05/12/23 omega 2-anq-erq-fish oil 1,200 mg 1 cap PO TID 09/30/22 05/12/23 (144 mg-216 mg) capsule (Fish Oil) sennosides 8.6 mg tablet (senna) 17.2 mg PO DAILY 09/30/22 05/12/23 Allergies Allergy/AdvReac Type Severity Reaction Status Date / Time No Known Allergies Allergy Mild Verified 05/12/23 13:32 Review of Systems Review of Systems: Pertinent positives per HPI. Patient denies any fever, chills, rash, headache, visual changes, dizziness, chest pain, palpitations, nausea, vomiting, diarrhea, constipation, abdominal pain, or any urinary issues. [facility] Past Medical History Medical History Arthritis Bulging discs L4 L5-S1 Cataracts, bilateral Maturing Endometriosis High cholesterol Mitral valve prolapse no symptoms Obesity (BMI 30.0-34.9) MARYBETH (obstructive sleep apnea) Auto titrating CPAP Pre-diabetes PVCs (premature ventricular contractions) Surgical History Surgical History History of colonoscopy with polypectomy (09/2019) History of endometrial ablation History of exploratory laparotomy History of right oophorectomy History of tonsillectomy Status post bilateral foot surgery She had pens placed in the 4th and 5th toes of bilateral feet to straight in her toes as a teenager Family History Family History Mother Hypertension Diabetes mellitus Lung cancer Sibling Hypertension Diabetes mellitus Father Leukemia Social History Social History Social History: The patient lives with her significant other and her son. 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 She rarely drinks alcohol and only in small amounts. She she used to occasionally use marijuana. Code status: Full code Surrogate decision maker: Estela Juan Ramon (significant other) and Cordell Garcia (son) Smoking packs per day: 1 Smoking cigarettes per day: 20.0 Years smoked: 25 Smoking pack-years: 25.00 Smoking status: Former smoker Alcohol intake: never Substance use: never Lack of Transportation: No Lack of Food: Never True Current Housing: I Have Housing Concerned About Future Housing: No Difficulty Paying Gas/Electric Bills: No Difficulty Paying for Meds: No Currently Unemployed: No Education: Bachelor's Degree Difficulty w/ Childcare or Family Care: No Living arrangements: with family Gender identity (if verbalized by the patient): Female Spiritual care concerns: No Comments At the time of my signature, I reviewed and agree with the nursing past medical, surgical, social, and family history. There is no relevant family history pertinent to the patient complaint. Exam Narrative: General: Well-developed, well nourished, in no
== END 2023-05-12 14:20 | disposition home or self-care (01) ==
PROVIDERS: Emergency Provider Nurse Practitioner Family; PCP Physician Assistant
DX: J40 Bronchitis, not specified as acute or chronic (principal); J06.9 Acute upper respiratory infection, unspecified; E66.9 Obesity, unspecified; Z68.30 Body mass index [BMI] 30.0-30.9, adult; G47.33 Obstructive sleep apnea (adult) (pediatric); Z87.891 Personal history of nicotine dependence
CPT/HCPCS: 71046; 87081; 87804; 87880; 99213; G0463

== ENCOUNTER 2024-05-10 13:46 | Emergency (ER) | payer MEDICARE, SELFPAY ==
--- NOTE | ~2024-05-10 | XR_ITS ---
EXAMINATION: XR chest 2V DATE: 05/10/2024 14:27 INDICATION: Cough and dyspnea TECHNIQUE: PA and lateral views of the chest were obtained. COMPARISON: Chest radiograph dated 05/12/2023 FINDINGS: Posterior medial basilar consolidation in the right lower lobe consistent with pneumonia. Remainder o f the lungs are clear. No pulmonary edema, pleural effusion or pneumothorax. The cardiomediastinal si lhouette is normal. 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 IMPRESSION: 1. Right lower lobe pneumonia. Reviewed, dictated and finalized at location A.
[2024-05-10 14:01] VITALS: BP 145/73; PULSE 67; RESP 16; TEMP 36.6; O2SAT 97
--- NOTE | 2024-05-10 14:16 | ED.URI ---
HPI - URI/Sore Throat General Chief Complaint: Upper Respiratory Infection Stated Complaint: sob and chest rattling Time Seen by Provider: 05/10/24 14:15 Source: patient, RN notes reviewed and old records reviewed Mode of arrival: ambulatory Limitations: no limitations History of Present Illness HPI Narrative: 69 year old female who presents to [facility] care with complaints of 2 week duration of cough feeling like her chest is rattling. Patient reports that she initially had some body aches, nausea,and chills;did home COVID and flu test which were negative.Patient states that she has had no sore throat or any ear pain,has had some headache and also some feelings of dyspnea with exertion. Patient reports wheezing at times especially when supine. Patient reports that she has be taking Tylenol and also Coricidin brand decongestant. Patient report past history of Pneumonia and Bronchitis, Patient has history of prior smoking 1 ppd for 25 years quit approximately 8 years ago. MD elicited complaint: cough, rhinorrhea, nasal congestion and other (congestion and some dyspnea) Pertinent past history: pneumonia and other (bronchitis) Onset (ago): week(s) (2) Consistency: constant Severity: moderate Able to tolerate fluids by mouth: Yes Treatments prior to arrival: acetaminophen and other (Coricidin) Related Data Home Medications Medication Instructions Recorded Confirmed ezetimibe 10 mg tablet 10 mg PO DAILY 05/25/21 05/10/24 metoprolol tartrate 25 mg tablet 12.5 mg PO TID 05/25/21 05/10/24 cetirizine 10 mg tablet (Zyrtec) 10 mg PO DAILY 09/30/22 05/10/24 cholecalciferol (vitamin D3) 50 50 mcg PO DAILY 09/30/22 05/10/24 mcg (2,000 unit) tablet multivitamin with minerals 1 tablet PO DAILY 09/30/22 05/10/24 omega 0-rmm-uam-fish oil 1,200 mg 1 cap PO TID 09/30/22 05/10/24 (144 mg-216 mg) capsule (Fish Oil) sennosides 8.6 mg tablet (senna) 17.2 mg PO DAILY 09/30/22 05/10/24 cranberry fruit concentrate 250 mg 250 mg PO TID 05/10/24 05/10/24 chewable tablet (Azo Cranberry) magnesium citrate 100 mg capsule 100 mg PO DAILY 05/10/24 05/10/24 Allergies Allergy/AdvReac Type Severity Reaction Status Date / Time No Known Allergies Allergy Mild Verified 05/10/24 14:06 Review of Systems Review of Systems: CONSTITUTIONAL: Reports some malaise, chills, sweats, or fever. EYES: Denies visual changes, redness, or discharge. ENT: Reports rhinorrhea, congestion, no sinus pain, no otalgia and no sore throat. CARDIOVASCULAR: Denies chest pain, palpitations, or edema. RESPIRATORY: Reports cough.?Reports some dyspnea. GASTROINTESTINAL: Denies abdominal pain,some intermittent nausea, no vomiting,no diarrhea SKIN: Denies rash or itching. MUSCULOSKELETAL: Reports myalgia. NEUROLOGIC: Reports headache. All systems reviewed & are unremarkable except as noted in HPI and below PMFSH Past Medical History Medical History Arthritis Bulging discs L4 L5-S1 Cataracts, bilateral Maturing Endometriosis High cholesterol Mitral valve prolapse no symptoms Obesity (BMI 30.0-34.9) MARYBETH (obstructive sleep apnea) Auto titrating CPAP Pre-diabetes PVCs (premature ventricular contractions) Surgical History Surgical History History of colonoscopy with polypectomy (09/2019) History of endometrial ablation History of exploratory laparotomy History of right oophorectomy History of tonsillectomy Status post bilateral foot surgery She had pens placed in the 4th and 5th toes of bilateral feet to straight in her toes as a teenager Family History Family History Mother Hypertension Diabetes mellitus Lung cancer Sibling Hypertension Diabetes mellitus Father Leukemia Social History Social History (Updated 05/10/24 @ 15:41 by Danae Bull NP) Social History: The [employer]ie
== END 2024-05-10 15:25 | disposition home or self-care (01) ==
PROVIDERS: Emergency Provider Registered Nurse; PCP Physician Assistant
DX: J18.1 Lobar pneumonia, unspecified organism (principal); Z87.891 Personal history of nicotine dependence; M19.90 Unspecified osteoarthritis, unspecified site; H26.9 Unspecified cataract; N80.9 Endometriosis, unspecified; E78.00 Pure hypercholesterolemia, unspecified; I34.1 Nonrheumatic mitral (valve) prolapse; E66.9 Obesity, unspecified; Z68.32 Body mass index [BMI] 32.0-32.9, adult; G47.33 Obstructive sleep apnea (adult) (pediatric)
CPT/HCPCS: 71046; 99213; G0463

== ENCOUNTER 2024-05-25 13:12 | Outpatient (CLI) | payer MEDICARE, SELFPAY ==
--- NOTE | ~2024-05-25 | XR_ITS ---
XR chest 2V Ordering provider: Fátima Hughes, JOE History: 69 years Female with . RIGHT LOWER ZONE PNEUMONIA FOLLOW UP . Comparison: May 10, 2024 FINDINGS: MEDIASTINUM: The cardiac silhouette is not enlarged. LUNGS: No infiltrates, effusions or pneumothorax. Prominent markings in the right lower lobe. OTHER: No free air under the diaphragm. IMPRESSION: Prominent markings in the right lower lobe. Residual changes of pneumonia cannot be excluded. Reviewed, dictated and finalized at location A. IMPRESSION: Prominent markings in the right lower lobe. Residual changes of pneumonia canno t be excluded.
== END 2024-05-25 13:13 | disposition home or self-care (01) ==
PROVIDERS: PCP Physician Assistant; Visit Provider Physician Assistant
DX: J18.1 Lobar pneumonia, unspecified organism (principal)
CPT/HCPCS: 71046

== ENCOUNTER 2024-06-08 12:41 | Outpatient (CLI) | payer MEDICARE, SELFPAY ==
--- NOTE | ~2024-06-08 | XR_ITS ---
XR chest 2V Ordering provider: Fátima Hughse, JOE History: 69 years Female with . RIGHT LOWER ZONE PNEUMONIA FOLLOW UP . Comparison: May 25, 2024 FINDINGS: MEDIASTINUM: The cardiac silhouette is slightly enlarged. LUNGS: No effusions or pneumothorax. Minimal opacification in the right lower lobe area unchanged fro m previous examination. Follow-up advised OTHER: No free air under the diaphragm. IMPRESSION: Minimal opacification in the right lower lobe area unchanged from previous examination. Reviewed, dictated and finalized at location A. IMPRESSION: Minimal opacification in the right lower lobe area unchanged from previous exam ination.
== END 2024-06-08 12:42 | disposition home or self-care (01) ==
LOC: ANHIMG 12:44
PROVIDERS: PCP Physician Assistant; Visit Provider Physician Assistant
DX: J18.1 Lobar pneumonia, unspecified organism (principal)
CPT/HCPCS: 71046

== ENCOUNTER 2024-06-23 08:03 | Outpatient (CLI) | payer MEDICARE, SELFPAY ==
--- NOTE | ~2024-06-23 | CT_ITS ---
Clinical Indication: Abnormal findings on diagnostic imaging CT Scan of the Chest with Contrast: Technique: Contiguous sections were acquired throughout the chest after intravenous administration of 75 cc of Omnipaque 350. Dose reduction technique was used on this scan by utilizing automated exposu re control and iterative reconstruction technique. The dose-length product (DLP) was 354.63 mGy-cm. Findings: There is no evidence of any significant mediastinal, hilar or axillary lymphadenopathy. There is no e vidence of aortic dissection or aneurysm. There is no evidence of pleural or pericardial effusion. Discoid right basilar atelectasis or scarring noted. Left lung clear. Images through the upper abdomen reveal probable diffuse hepatic steatosis. Impression: Discoid right basilar atelectasis or scarring. Reviewed, dictated and finalized at [facility]. Impression: Discoid right basilar atelectasis or scarring.
[2024-06-23 08:33] LABS: Estimated Glomerular Filt Rate > 60
== END 2024-06-23 08:04 | disposition home or self-care (01) ==
PROVIDERS: PCP Physician Assistant; Visit Provider Physician Assistant
DX: R93.89 Abnormal findings on diagnostic imaging of other specified body structures (principal)
CPT/HCPCS: 71260; Q9967

== ENCOUNTER 2025-05-24 01:56 | Day surgery (SDC) | payer MEDICARE, SELFPAY ==
[2025-05-17 09:46] VITALS: BMI 31.9
--- NOTE | 2025-05-17 10:00 | PC.NURSE ---
Spoke with patient regarding medication Eliquis. Patient verbalizes understanding that the last dose is to be taken on 05/21/25 and the Endoscopist will instruct them when to restart after the procedure.
[2025-05-24 06:21] VITALS: BP 149/78; PULSE 57; RESP 18; TEMP 36.1; O2SAT 96; BMI 33.7
[2025-05-24] MEDS: LACTATED RINGERS 1,000 ML 150 ML IV CONT (06:31)
--- NOTE | 2025-05-24 07:02 | WPDANESEPPF ---
Anes - Initial Pre Proc Eval Procedure: Operation Date: 05/24/25 07:30 Proposed Procedures p Colonoscopy - Ari Chong MD Date/Time: 05/24/25 07:02 Surgeon: Ari Chong MD Pre Op Diagnosis: Personal history of colon polyps, unspecified Patient Data Age: 70 Gender: F Height: 1.73 m Weight: 100.5 kg Last Vital Signs Temp 97.0 F L 05/24/25 06:21 Pulse 57 L 05/24/25 06:21 Resp 18 05/24/25 06:21 BP 149/78 H 05/24/25 06:21 Pulse Ox 96 05/24/25 06:21 O2 Del Method Room Air 05/24/25 06:21 Allergies Allergy/AdvReac Type Severity Reaction Status Date / Time No Known Allergies Allergy Mild Verified 05/24/25 06:18 Home Medications ?Medication ?Instructions ?Recorded ?Confirmed ?Type ezetimibe 10 mg tablet 10 mg PO DAILY 05/25/21 05/24/25 History metoprolol tartrate 25 mg tablet 12.5 mg PO TID 05/25/21 05/24/25 History apixaban 5 mg tablet (Eliquis) 5 mg PO Q12HR #72 tabs 09/30/22 05/24/25 Rx cetirizine 10 mg tablet (Zyrtec) 10 mg PO DAILY 09/30/22 05/24/25 History cholecalciferol (vitamin D3) 50 50 mcg PO DAILY 09/30/22 05/24/25 History mcg (2,000 unit) tablet multivitamin with minerals 1 tablet PO DAILY 09/30/22 05/24/25 History omega 6-kth-nqa-fish oil 1,200 mg 1 cap PO TID 09/30/22 05/24/25 History (144 mg-216 mg) capsule (Fish Oil) sennosides 8.6 mg tablet (senna) 17.2 mg PO DAILY 09/30/22 05/24/25 History albuterol sulfate 90 mcg/actuation 2 puff inhalation Q4-6H PRN 05/12/23 05/17/25 Rx aerosol inhaler shortness of breath or wheezing 30 days #8.5 grams albuterol sulfate 90 mcg/actuation 2 puff inhalation QID PRN 05/10/24 05/17/25 Rx aerosol inhaler shortness of breath or wheezing #6.7 grams cranberry fruit concentrate 250 mg 250 mg PO TID 05/10/24 05/24/25 History chewable tablet (Azo Cranberry) magnesium citrate 100 mg capsule 100 mg PO DAILY 05/10/24 05/17/25 History ascorbic acid (vitamin C) 100 mg 282 mg PO DAILY 05/17/25 05/24/25 History tablet (Vitamin C) biotin 10,000 mcg chewable tablet 2,500 mcg PO DAILY 05/17/25 05/24/25 History (Hair, Skin and Nails (biotin)) sour elizabeth extract 1,000 mg 1,200 mg PO DAILY 05/17/25 05/24/25 History capsule Patient hx anesthesia problems: none Family hx anesthesia problems: none Results Review: All pre-operative results and documents have been reviewed as part of the pre-operative evaluation. [facility] Past Medical History Medical History Endometriosis Bulging discs L4 L5-S1 Cataracts, bilateral Maturing Pre-diabetes Obesity (BMI 30.0-34.9) PVCs (premature ventricular contractions) High cholesterol Arthritis MARYBETH (obstructive sleep apnea) Auto titrating CPAP Mitral valve prolapse no symptoms Surgical History Surgical History History of colonoscopy with polypectomy (09/2019) History of tonsillectomy Status post bilateral foot surgery She had pens placed in the 4th and 5th toes of bilateral feet to straight in her toes as a teenager History of endometrial ablation History of exploratory laparotomy History of right oophorectomy Family History Family History Mother Hypertension Diabetes mellitus Lung cancer Sibling Hypertension Diabetes mellitus Father Leukemia Social History Social History Social History: The patient lives with her significant other and her son. 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 She rarely drinks alcohol and only in small amounts. She used to occasionally use marijuana past. Code status: Full code Surrogate decision maker: Estela Delatorre (significant other) and Cordell Garcia (son) Smoking packs per day: 1 Smoking cigarettes per day: 20.0 Years smoked: 25 Smoking pack-years: 25.00 Smoking status: Former smoker Alcohol intake: never Substance use: never Substance use type: does not use Lack of Transportation: No Lack of Food: Never True Current Housing: I Have Housing Concerned About Future Housing: No Difficulty Paying Gas/Electric Bills: No Difficulty Paying for Meds: No Currently Unemployed: No Education: Bachelor's Degree Difficulty w/ Childcare or Family Care: No Living arrangements: with family Gender identity (if verbalized by the patient): Female Spiritual care concerns: No Anes - Eval Final PreProcedure Day of Procedure 05/24/25 07:02 Patient weight: obese Lungs: normal air movement Airway: Mallampati scale class II Neurological: alert and oriented Last oral intake: >/= 8 hours ASA classification: III Emergent: no Anesthetic plan: proceed Anesthesia type and monitoring: general GIVS and standard monitoring Results Review: All pre-operative results and documents have been reviewed as part of the pre-operative evaluation. MARYBETH on CPAP, Afib w hx of RVR, now on b stanley taken bid (took dose this am). Pt can walk 1-2 fos, bikes, no cp or sob. Informed Consent: The patient's anesthetic plan and its attendant risks and benefits were discussed with the patient/family/POA. Questions were solicited and answers provided to the satisfaction of the patient/family/POA.
--- NOTE | 2025-05-24 07:20 | PM.HPGS ---
History of Present Illness History of Present Illness Consent: Risks, benefits, and alternatives have been discussed and questions answered. Patient agrees to proceed with procedure. Chief complaint: Personal history of colon polyps, unspecified Narrative: Fortino Solano is a 70 year old female with colon polyp in 2019, brother also had colon cancer Review of Systems Review of Systems: All systems reviewed & are unremarkable except as noted in HPI and below PMFSH Past Medical History Medical History (Updated 05/24/25 @ 07:21 by Ari Chong MD) Colon polyp Endometriosis Bulging discs L4 L5-S1 Cataracts, bilateral Maturing Pre-diabetes Obesity (BMI 30.0-34.9) PVCs (premature ventricular contractions) High cholesterol Arthritis MARYBETH (obstructive sleep apnea) Auto titrating CPAP Mitral valve prolapse no symptoms Surgical History Surgical History History of colonoscopy with polypectomy (09/2019) History of tonsillectomy Status post bilateral foot surgery She had pens placed in the 4th and 5th toes of bilateral feet to straight in her toes as a teenager History of endometrial ablation History of exploratory laparotomy History of right oophorectomy Family History Family History Mother Hypertension Diabetes mellitus Lung cancer Sibling Hypertension Diabetes mellitus Father Leukemia Social History Social History Social History: The patient lives with her significant other and her son. She is a retired business librarian for a school system. She rarely drinks alcohol and only in small amounts. She used to occasionally use marijuana past. Code status: Full code Surrogate decision maker: Estela Delatorre (significant other) and Cordell Garcia (son) Smoking packs per day: 1 Smoking cigarettes per day: 20.0 Years smoked: 25 Smoking pack-years: 25.00 Smoking status: Former smoker Alcohol intake: never Substance use: never Substance use type: does not use Lack of Transportation: No Lack of Food: Never True Current Housing: I Have Housing Concerned About Future Housing: No Difficulty Paying Gas/Electric Bills: No Difficulty Paying for Meds: No Currently Unemployed: No Education: Bachelor's Degree Difficulty w/ Childcare or Family Care: No Living arrangements: with family Gender identity (if verbalized by the patient): Female Spiritual care concerns: No Meds Home Medications and Allergies Home Medications ?Medication ?Instructions ?Recorded ?Confirmed ?Type ezetimibe 10 mg tablet 10 mg PO DAILY 05/25/21 05/24/25 History metoprolol tartrate 25 mg tablet 12.5 mg PO TID 05/25/21 05/24/25 History apixaban 5 mg tablet (Eliquis) 5 mg PO Q12HR #72 tabs 09/30/22 05/24/25 Rx cetirizine 10 mg tablet (Zyrtec) 10 mg PO DAILY 09/30/22 05/24/25 History cholecalciferol (vitamin D3) 50 50 mcg PO DAILY 09/30/22 05/24/25 History mcg (2,000 unit) tablet multivitamin with minerals 1 tablet PO DAILY 09/30/22 05/24/25 History omega 5-zoc-chd-fish oil 1,200 mg 1 cap PO TID 09/30/22 05/24/25 History (144 mg-216 mg) capsule (Fish Oil) sennosides 8.6 mg tablet (senna) 17.2 mg PO DAILY 09/30/22 05/24/25 History albuterol sulfate 90 mcg/actuation 2 puff inhalation Q4-6H PRN 05/12/23 05/17/25 Rx aerosol inhaler shortness of breath or wheezing 30 days #8.5 grams albuterol sulfate 90 mcg/actuation 2 puff inhalation QID PRN 05/10/24 05/17/25 Rx aerosol inhaler shortness of breath or wheezing #6.7 grams cranberry fruit concentrate 250 mg 250 mg PO TID 05/10/24 05/24/25 History chewable tablet (Azo Cranberry) magnesium citrate 100 mg capsule 100 mg PO DAILY 05/10/24 05/17/25 History ascorbic acid (vitamin C) 100 mg 282 mg PO DAILY 05/17/25 05/24/25 History tablet (Vitamin C) biotin 10,000 mcg chewable tablet 2,500 mcg PO DAILY 05/17/25 05/24/25 History (Hair, Skin and Nails (biotin)) sour elizabeth extract 1,000 mg 1,200 mg PO DAILY 05/17/25 05/24/25 History capsule Allergies Allergy/AdvReac Type Severity Reaction Status Date / Time No Known Allergies Allergy Mild Verified 05/24/25 06:18 Vital Signs Vital Signs - 24 hr 05/24/25 06:21 Temperature 97.0 F L Pulse Rate 57 L Respiratory Rate 18 Blood Pressure 149/78 H Pulse Oximetry 96 Oxygen Delivery Room Air Exam Const: General: comfortable and no acute distress HENMT: Face/Nose/Sinus: Normal nares present Eyes: General: appearance normal, both eyes and all related structures Neck: Neck: no JVD Resp: Auscultation: clear to auscultation bilaterally Cardio: Rate: regular rate Rhythm: regular rhythm GI: Inspection: non-distended GI Palp: Yes Soft to palpation Skin: General skin exam: normal color Neuro: Speech: normal speech Extrem: General: normal to inspection Psych: Mental Status: mental status grossly normal Assessment and Plan Assessment and plan (1) Colon polyp: Code(s): K63.5 - Polyp of colon Status: Acute Assessment and Plan: colonoscopy
--- NOTE | 2025-05-24 07:42 | S_PTH ---
PATIENT: Fortino Solano LOC: [facility] [place]#:[id number] AGE/SX: 70/F ROOM: RE05/24/[address]: Ari Chong MD : 1955 BED: DIS: 05/24/2025 SPEC #: [id number] RECD: 05/24/25 10:13 STATUS: IZZY REAlysha #: [id number] KIT: 05/24/25 07:[address]: Ari Chong DEPT: [facility] [place] Surgical RECD BY: Laura Borrero ENTERED: 05/24/25 10:14 SP TYPE: Surgical OTHR DR: Fátima Hughes, PAMor Tissues: A - Colon Polypectomy Procedures: Hematoxylin and Eosin Stain Gross and Microscopic Level 4
[2025-05-24 07:43] VITALS: BP 110/46; PULSE 52; RESP 22; O2SAT 100
[2025-05-24 07:53] VITALS: BP 109/54; PULSE 57; RESP 23; O2SAT 100
[2025-05-24 08:03] VITALS: BP 123/82; PULSE 50; RESP 18; O2SAT 100
== END 2025-05-24 08:10 | disposition home or self-care (01) ==
PROVIDERS: PCP Physician Assistant; Referring Provider Physician Assistant; Visit Provider Internal Medicine Gastroenterology
PROC: 0DJD8ZZ Inspection of Lower Intestinal Tract, Via Natural or Artificial Opening Endoscopic (ICD-10-PCS; CPT 45378; principal; 2025-05-24 07:30)
DX: Z12.11 Encounter for screening for malignant neoplasm of colon (principal); D12.2 Benign neoplasm of ascending colon; K64.8 Other hemorrhoids; K57.30 Diverticulosis of large intestine without perforation or abscess without bleeding; R73.03 Prediabetes; E78.00 Pure hypercholesterolemia, unspecified; N80.9 Endometriosis, unspecified; I49.3 Ventricular premature depolarization; I48.20 Chronic atrial fibrillation, unspecified; M51.369 Other intervertebral disc degeneration, lumbar region without mention of lumbar back pain or lower extremity pain; M51.379 Other intervertebral disc degeneration, lumbosacral region without mention of lumbar back pain or lower extremity pain; G47.33 Obstructive sleep apnea (adult) (pediatric); E66.9 Obesity, unspecified; Z68.33 Body mass index [BMI] 33.0-33.9, adult; Z79.01 Long term (current) use of anticoagulants; Z79.51 Long term (current) use of inhaled steroids; Z99.89 Dependence on other enabling machines and devices; Z98.890 Other specified postprocedural states; Z98.891 History of uterine scar from previous surgery; Z87.891 Personal history of nicotine dependence; Z86.79 Personal history of other diseases of the circulatory system; Z80.0 Family history of malignant neoplasm of digestive organs; Z80.1 Family history of malignant neoplasm of trachea, bronchus and lung; Z80.6 Family history of leukemia
CPT/HCPCS: 45385; 88305; J2704; J7120